=== PATIENT | male | born 1950 | race Caucasian/White ===

== ENCOUNTER 2022-10-17 07:53 | Emergency (ER) | payer MEDICARE, OTHER ==
[2022-10-17 08:00] VITALS: BP 153/91
--- NOTE | 2022-10-17 08:32 | ED Physician Documentation ---
PD HPI UPPER EXT INJURY - Stated complaint Stated Complaint: R SHLDR INJURY - Chief complaint Chief Complaint: Ext Problem - History obtained from History obtained from: Patient - Additonal information Additional information: The pt comes to the ED for CC of R shoulder pain for the past 4 weeks since a pulling/twisting injury. He states he does not have any clicking or popping, and no loss of strength. It hurts when he abducts and internally rotates, resulting in some limitation of ROM. No sensory loss. Pt has already been seen at [facility] for the same thing, with negative XRs. PD PAST MEDICAL HISTORY - Allergies Allergies/Adverse Reactions: Allergies Allergy/AdvReac Type Severity Reaction Status Date / Time No Known Drug Allergies Allergy Verified 10/17/22 08:00 PD ED PE NORMAL - Vitals Vital signs reviewed: Yes - General General: Alert and oriented X 3, No acute distress, Well developed/nourished - HEENT HEENT: Atraumatic, PERRL, EOMI, Moist mucous membranes - Neck Neck: Supple, no meningeal sign - Cardiac Cardiac: RRR, No murmur, Strong equal pulses - Respiratory Respiratory: No respiratory distress, Clear bilaterally - Derm Derm: Normal color, Warm and dry, No rash - Extremities Extremities: No deformity, Other (moderately limited ROM with abduction and internal rotation) - Neuro Neuro: Alert and oriented X 3, No motor deficit, No sensory deficit - Psych Psych: Normal mood, Normal affect Results - Rads (name of study) R shoulder XR Relevant Findings:: Final report received, See rad report (neg, other than degenerative changes) PD Medical Decision Making - ED course Complexity details: reviewed results, re-evaluated patient, considered differential, d/w patient ED course: The pt's XR series here was negative, other than DJD. I d/w pt that he most likely sprained his shoulder, and this can take a number of weeks to heal. We have discussed motions to avoid, and the need for follow up with his doctor to discuss MRI. Departure - Departure Disposition: 01 Home, Self Care Clinical Impression: Shoulder sprain Qualifiers: Encounter type: initial encounter Shoulder sprain type: unspecified sprain Laterality: right Qualified Code(s): S43.401A - Unspecified sprain of right shoulder joint, initial encounter Condition: Stable Instructions: ED Sprain Shoulder Comments: Your symptoms are consistent with Injury to the soft tissues of the shoulder, which is generally referred to as a sprain or strain. Unfortunately, these inj uries take a long time to heal, usually on the order of 6 to 8 weeks. This is very frustrating and can seem like it is taking forever, but it does ultimately heal. If you wish to have it visualized in better detail, the test of choice is MRI. This is not an emergent procedure for an injury like this, and as such, would not be done in the emergency department. However, you can talk to your primary doctor about having this done if you are still having symptoms when you see him or her in a couple of weeks. You can also talk to your doctor about whether a cortisone injection may be helpful for you. In the meantime, you may continue to use anti-inflammatories. Please work on gentle range of motion exercises and stretching the area that feels tight or painful. You may do this by putting your arm in a supported position that causes a little discomfort to start and holding it there for 30 to 60 seconds. Some of the pain you feel in the front, which was not there originally, it is likely due to some muscular tightness and inflammation from using your shoulder less than you normally would since the injury. Stretching these muscles can help you get moving again and avoid scarring. Discharge Date/Time: 10/17/22 08:41
--- NOTE | 2022-10-17 08:33 | XRAY Report ---
PROCEDURE: Shoulder 3 View RT INDICATIONS: injury/pain TECHNIQUE: 3 views of the shoulder were acquired. COMPARISON: None. FINDINGS: Bones: No displaced fracture or dislocation. Mild degenerative changes of the glenohumeral and acromi oclavicular joints. Soft tissues: No suspicious calcifications. IMPRESSION: No acute radiographic abnormality. Mild degenerative changes. If there is high concern for further de rangement, consider MRI evaluation. Reviewed by: Julio Hartman MD on 10/17/2022 8:32 AM PDT Approved by: Julio Hartman MD on 10/17/2022 8:32 AM PDT Station ID: [id number]
== END 2022-10-17 08:41 | disposition home or self-care (01) ==
LOC: ED 07:53
DX: S43.401A Unspecified sprain of right shoulder joint, initial encounter (principal); X50.1XXA Overexertion from prolonged static or awkward postures, initial encounter
CPT/HCPCS: 99283